=== PATIENT | male | born 2000 | race Caucasian/White ===

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

== ENCOUNTER 2018-01-09 19:19 | Emergency (ER) | END 2018-01-09 21:02 | disposition home or self-care (01) ==

== ENCOUNTER 2018-02-10 20:12 | Emergency (ER) | END 2018-02-10 23:21 | disposition home or self-care (01) ==

== ENCOUNTER 2018-03-10 20:24 | Emergency (ER) | END 2018-03-10 22:52 | disposition home or self-care (01) ==

== ENCOUNTER 2018-08-23 14:58 | Emergency (ER) | END 2018-08-23 17:07 | disposition home or self-care (01) ==

== ENCOUNTER 2018-12-26 09:19 | Emergency (ER) | payer OTHER ==
[~2018-12-26] VITALS: Wt 90.0 kg
[~2018-12-26 09:19] MED LIST: ACET-141 PO; ACET500C5 PO; ADVIL PRN; ALBU18HF INHALATION; ALBU8.5H8; BENZ-6 PO; CETI10CA PO; D-ME473S2 PO; DICY10CA40 PO; DICY20TA59 PO; FAMO-96 PO; HYDR-3498 PO; IBUP-1542 PO; OMEP10CA4 PO; ONDA4TAB14 PO; ONDA4TAB35 PO; PROM6.256
[2018-12-26 09:22] VITALS: BP 135/63; PULSE 98; RESP 18
[2018-12-26] MEDS ORDERED: BENZ-6 PO (09:51)
--- NOTE | 2018-12-26 10:39 | ERD ---
ER Documentation Chief Complaint Chief Complaint cough x 2 days HPI 17-year-old male patient with no significant past medical history presents the ED complaining of a cough that started 2 days ago. Patient reports that he has been taking DayQuil as well as promethazine DM without any relief. Denies any recent traveling. Denies any nausea, vomiting, diarrhea, neck stiffness, abdominal pain, chest pain, shortness of breath. ROS All systems reviewed and are negative except as per history of present illness. Medications Home Meds Active Scripts Benzonatate* (Tessalon Perle*) 100 Mg Capsule, 100 MG PO Q8H PRN for COUGH, #20 CAP Prov:RANDALL CASTRO PA-C 12/26/18 Albuterol Sulfate* (Ventolin HFA*) 18 Gm Hfa.aer.ad, 2 PUFF INHALATION Q4H, #1 INHALER Prov:RANDALL CASTRO PA-C 08/23/18 Benzonatate* (Tessalon Perle*) 100 Mg Capsule, 100 MG PO Q8H PRN for COUGH, #20 CAP Prov:RANDALL CASTRO PA-C 08/23/18 Dextromethorphan Hb-Promethazine Hcl* (Promethazine DM* Syrup) 473 Ml Syrup, 5 ML PO Q6 PRN for COUGH, #120 ML Prov:WIGN THAKUR PA-C 03/10/18 Famotidine* (Pepcid*) 20 Mg Tablet, 20 MG PO BID, #60 TAB Prov:MAURICIO MOLINA NP 02/10/18 Ondansetron (Ondansetron Odt) 4 Mg Tab.rapdis, 4 MG PO Q6H PRN for NAUSEA AND/OR VOMITING, #20 TAB Prov:MAURICIO MOLINA NP 02/10/18 Acetaminophen* (Tylophen*) 500 Mg Capsule, 1 CAP PO Q6H PRN for PAIN AND OR ELEVATED TEMP, #20 CAP Prov:MAURICIO MOLINA NP 02/10/18 Omeprazole* (Omeprazole*) 10 Mg Capsule.dr, 10 MG PO BID, #30 CAP Prov:QUINCY HANNA PA-C 01/09/18 Dicyclomine HCl (Dicyclomine HCl) 10 Mg Capsule, 1 TAB PO Q6 for 4 Days Prov:QUINCY HANNA PA-C 01/09/18 Ondansetron (Ondansetron Odt) 4 Mg Tab.rapdis, 4 MG PO Q6H PRN for NAUSEA AND/OR VOMITING, #10 TAB Prov:QUINCY HANNA PA-C 01/09/18 Acetaminophen* (Tylophen*) 500 Mg Capsule, 1 CAP PO Q6H PRN for PAIN AND OR ELEVATED TEMP, #20 CAP Prov:MAURICIO MOLINA NP 12/26/17 Cetirizine Hcl* (Zyrtec*) 10 Mg Capsule, 10 MG PO DAILY, #30 TAB.CHEW Prov:MAURICIO MOLINA NP 12/26/17 Ibuprofen* (Motrin*) 600 Mg Tab, 600 MG PO Q6H PRN for PAIN AND OR ELEVATED TEMP, #30 TAB Prov:MAURICIO MOLINA NP 12/26/17 Benzonatate* (Tessalon Perle*) 100 Mg Capsule, 100 MG PO Q8H PRN for COUGH, #20 CAP Prov:MAURICIO MOLINA NP 12/26/17 Ibuprofen* (Motrin*) 600 Mg Tab, 600 MG PO Q6H PRN for PAIN AND OR ELEVATED TEMP, #30 TAB Prov:MAURICIO MOLINA NP 07/18/16 Ondansetron (Ondansetron Odt) 4 Mg Tab.rapdis, 4 MG PO Q8 PRN for NAUSEA AND/OR VOMITING, #30 TAB Prov:MAURICIO MOLINA NP 07/18/16 Dicyclomine Hcl* (Bentyl*) 20 Mg Tablet, 20 MG PO QID, #20 TAB Prov:MAURICIO MOLINA NP 07/18/16 Hydrocodone Bit-Acetaminophen* ([place]*) 5-325 Mg Tab, 1 TAB PO Q6 PRN for PAIN, #15 TAB Prov:MORAIMA HESTER 01/02/16 Acetaminophen* (Acetaminophen*) 500 MG Extra Strength Tablet, 500 MG PO Q4H PRN for PAIN AND OR ELEVATED TEMP, #30 TAB Prov:MEME JOHNSON PA-C 1/24/16 Ondansetron Hcl* (Zofran* ODT) 4 mg -ODT Tab.disper, 4 MG PO Q6 PRN for NAUSEA AND/OR VOMITING, #10 TAB Prov:MEME JOHNSON PA-C 09/27/15 Reported Medications Albuterol Sulfate* (Proair HFA*) 8.5 Gm Hfa.aer.ad 11/30/10 Promethazine Hcl* (Phenergan* Liq) 6.25 Mg/5 Ml Syrup 09/21/10 [Advil Prn] No Conflict Check 09/12/09 Allergies Allergies: Coded Allergies: No Known Allergy (Verified , 12/26/18) PMhx/Soc Medical and Surgical Hx: pt denies Medical Hx, pt denies Surgical Hx History of Surgery: No Anesthesia Reaction: No Hx Neurological Disorder: No Hx Respiratory Disorders: No Hx Cardiac Disorders: No Hx Psychiatric Problems: No Hx Miscellaneous Medical Probl: No Hx Alcohol Use: Yes (social) Hx Substance Use: Yes (marijuana daily) Hx Tobacco Use: No FmHx Family History: No diabetes, No coronary disease Physical Exam Vitals Vital Signs Date Temp Pulse Resp B/P (MAP) Pulse Ox O2 O2 Flow FiO2 Time Delivery Rate 12/26/18 98.1 98 18 135/63 99 09:22 (87) Physical Exam Const: Uuw-efp-[id number], well-nourished. In no acute distress. Head: Atraumatic, normocephalic Eyes: Normal Conjunctiva without injection. No purulent discharge. PERRL. EOMI ENT: Normal external ear. Ear canal without erythema. Tympanic membrane pearly chou without effusion or bulging. Nasal canal clear with normal turbinates. Moist oropharynx without tonsillar exudates. Non-erythematous pharynx. Uvula midline. No drooling. No trismus. Neck: Full range of motion. No meningismus. No cervical lymphadenopathy. Resp: Clear to auscultation bilaterally. No wheezing, rhonchi, rales, or crackles. No accessory muscle use. No retractions. Cardio: Regular rate and rhythm. No murmurs, rubs or gallops. Abd: Soft, non tender, non distended. Normal bowel sounds. No palpable masses. No rebound tenderness. No guarding. Skin: No petechiae or rashes Back: No midline tenderness. No CVA tenderness. Ext: No cyanosis, or edema. Neur: Awake and alert. Psych: Normal Mood and Affect Procedures/MDM 17-year-old male patient with no significant past medical history presents ED complaining of cough that started 2 days ago. Patient is afebrile and nontoxic- appearing. Patient is speaking in full sentences without any respiratory dis tress. This patient presents to the ED with symptoms consistent with a viral acute upper respiratory infection. Patient's physical exam include lungs which were clear to auscultation and a normal pulse oximetry. There is a low suspicion for pneumonia, pneumothorax, mononucleosis, pulmonary embolism, epiglottitis, otitis media, otitis externa, viral/strep pharyngitis, sinusitis, myocarditis, pericarditis, endocarditis, peritonsillar abscess, mastoiditis, retropharyngeal abscess, meningitis, sepsis, acute abdomen or other emergent conditions. Fluids, rest, and symptomatic treatment are recommended for the management of patient's symptoms. Diagnosis: Cough Discharge medications: Ra Blackwell Patient was instructed to return to the ED for any new or worsening symptoms. They should otherwise follow up with the primary care provider within 2-3 days. The patient's questions were answered at the time of discharge. Patient understood and agreed with discharge management. Disclaimer: Inadvertent spelling and grammatical errors are likely due to EHR/dictation software use and do not reflect on the overall quality of patient care. Also, please note that the electronic time recorded on this note does not necessarily reflect the actual time of the patient encounter. Departure Diagnosis: Primary Impression: Cough Condition: Stable Patient Instructions: Uri, Viral, No Abx (Adult) Referrals: [facility] YOU HAVE RECEIVED A MEDICAL SCREENING EXAM AND THE RESULTS INDICATE THAT YOU DO NOT HAVE A CONDITION THAT REQUIRES URGENT TREATMENT IN THE EMERGENCY DEPARTMENT. FURTHER EVALUATION AND TREATMENT OF YOUR CONDITION CAN WAIT UNTIL YOU ARE SEEN I N YOUR DOCTORS OFFICE WITHIN THE NEXT 1-2 DAYS. IT IS YOUR RESPONSIBILITY TO MAKE AN APPOINTMENT FOR FOLOW-UP CARE. IF YOU HAVE A PRIMARY DOCTOR --you should call your primary doctor and schedule an appointment IF YOU DO NOT HAVE A PRIMARY DOCTOR YOU CAN CALL OUR PHYSICIAN REFERRAL HOTLINE AT IF YOU CAN NOT AFFORD TO SEE A PHYSICIAN YOU CAN CHOSE FROM THE FOLLOWING [facility] [address] [facility] [address] [facility] [address] [facility] [address] [facility] [address] [facility]. [facility]. [address] [facility]. [facility] YOU HAVE RECEIVED A MEDICAL SCREENING EXAM AND THE RESULTS INDICATE THAT YOU DO NOT HAVE A CONDITION THAT REQUIRES URGENT TREATMENT IN THE EMERGENCY DEPARTMENT. FURTHER EVALUATION AND TREATMENT OF YOUR CONDITION CAN WAIT UNTIL YOU ARE SEEN IN YOUR DOCTORS OFFICE WITHIN THE NEXT 1-2 DAYS. IT IS YOUR RESPONSIBILITY TO MAKE AN APPOINTMENT FOR FOLOW-UP CARE. IF YOU HAVE A PRIMARY DOCTOR --you should call your primary doctor and schedule and appointment IF YOU DO NOT HAVE A PRIMARY DOCTOR YOU CAN CALL OUR PHYSICIAN REFERRAL HOTLINE AT . IF YOU CAN NOT AFFORD TO SEE A PHYSICIAN YOU CAN CHOSE FROM THE FOLLOWING [facility] INSTITUTIONS: [facility] [address] [place] [address] [facility] [address] [place] [address] [facility] [place] [address] [place] [address] [facility] Additional Instructions: Call your primary care doctor TOMORROW for an appointment during the next 2-3 days.See the doctor sooner or return here if your condition worsens before your appointment time. RANDALL CASTRO PA-C Dec 26, 2018 10:39
[2018-12-26] MEDS ORDERED: INHA-3 MC (20:07)
[2018-12-26] MEDS ORDERED: GUAI120S25 PO (20:07)
[2018-12-26] MEDS ORDERED: ALBU8.5H8 INH (20:07)
[2018-12-26] MEDS ORDERED: CETI10CA PO (20:07)
[2018-12-26] MEDS ORDERED: PRED20TA PO (20:07)
== END 2018-12-26 10:19 | disposition home or self-care (01) ==
LOC: FTE 09:19
DX: R05 Cough (principal)
CPT/HCPCS: 99283

== ENCOUNTER 2018-12-26 18:30 | Emergency (ER) | payer OTHER ==
[~2018-12-26] VITALS: Ht 172.7 cm; Wt 92.5 kg
[2018-12-26 18:35] VITALS: BP 138/65; PULSE 86; RESP 16; Ht 172.7 cm; Wt 92.5 kg
--- NOTE | 2018-12-26 20:03 | ERD ---
ER Documentation Chief Complaint Chief Complaint Rash on R side started at 1630 pt took faisal kennedy @ 1100 HPI 18-year-old male, previously healthy, presents to the emergency department, complaining of acute onset of erythematous pruritic rash on the upper extremities after taking Almazsalon Rosalva for an upper respiratory infection. The patient denies history of previous episodes, no facial rash, no lip or tongue edema, no shortness of breath. No treatment attempted at this time. ROS All systems reviewed and are negative except as per history of present illness. Medications Home Meds Active Scripts [id number] Hb* (Guaifenesin* DM Syrup) 120 Ml Syrup, 10 ML PO TID PRN for COUGH, #120 ML Prov:ERICA NIEVES MD 12/26/18 Inhaler, Assist Devices (Compact Space Chamber) 1 Each Spacer, EACH MC, #1 Prov:ERICA NIEVES MD 12/26/18 Albuterol Sulfate* (Proair HFA*) 8.5 Gm Hfa.aer.ad, 2 PUFF INH Q4 for 7 Days, #1 INHALER Prov:ERICA NIEVES MD 12/26/18 Cetirizine Hcl* (Zyrtec*) 10 Mg Capsule, 10 MG PO DAILY, #10 TAB.CHEW Prov:ERICA NIEVES MD 12/26/18 Prednisone* (Prednisone*) 20 Mg Tab, 40 MG PO DAILY for 4 Days, TAB Prov:ERICA NIEVES MD 12/26/18 Benzonatate* (Tessalon Perle*) 100 Mg Capsule, 100 MG PO Q8H PRN for COUGH, #20 CAP Prov:RANDALL CASTRO PA-C 12/26/18 Albuterol Sulfate* (Ventolin HFA*) 18 Gm Hfa.aer.ad, 2 PUFF INHALATION Q4H, #1 INHALER Prov:RANDALL CASTRO PA-C 08/23/18 Benzonatate* (Tessalon Perle*) 100 Mg Capsule, 100 MG PO Q8H PRN for COUGH, #20 CAP Prov:RANDALL CASTRO PA-C 08/23/18 Dextromethorphan Hb-Promethazine Hcl* (Promethazine DM* Syrup) 473 Ml Syrup, 5 ML PO Q6 PRN for COUGH, #120 ML Prov:WING THAKUR PA-C 03/10/18 Famotidine* (Pepcid*) 20 Mg Tablet, 20 MG PO BID, #60 TAB Prov:MAURICIO MOLINA NP 02/10/18 Ondansetron (Ondansetron Odt) 4 Mg Tab.rapdis, 4 MG PO Q6H PRN for NAUSEA AND/OR VOMITING, #20 TAB Prov:MAURICIO MOLINA NP 02/10/18 Acetaminophen* (Tylophen*) 500 Mg Capsule, 1 CAP PO Q6H PRN for PAIN AND OR ELEVATED TEMP, #20 CAP Prov:MAURICIO MOLINA NP 02/10/18 Omeprazole* (Omeprazole*) 10 Mg Capsule.dr, 10 MG PO BID, #30 CAP Prov:QUINCY HANNA PA-C 01/09/18 Dicyclomine HCl (Dicyclomine HCl) 10 Mg Capsule, 1 TAB PO Q6 for 4 Days Prov:QUINCY HANNA PA-C 01/09/18 Ondansetron (Ondansetron Odt) 4 Mg Tab.rapdis, 4 MG PO Q6H PRN for NAUSEA AND/OR VOMITING, #10 TAB Prov:QUINCY HANNA PA-C 01/09/18 Acetaminophen* (Tylophen*) 500 Mg Capsule, 1 CAP PO Q6H PRN for PAIN AND OR ELEVATED TEMP, #20 CAP Prov:MAURICIO MOLINA NP 12/26/17 Cetirizine Hcl* (Zyrtec*) 10 Mg Capsule, 10 MG PO DAILY, #30 TAB.CHEW Prov:MAURICIO MOLINA NP 12/26/17 Ibuprofen* (Motrin*) 600 Mg Tab, 600 MG PO Q6H PRN for PAIN AND OR ELEVATED TEMP, #30 TAB Prov:MAURICIO MOLINA NP 12/26/17 Benzonatate* (Tessalon Perle*) 100 Mg Capsule, 100 MG PO Q8H PRN for COUGH, #20 CAP Prov:MAURICIO MOLINA NP 12/26/17 Ibuprofen* (Motrin*) 600 Mg Tab, 600 MG PO Q6H PRN for PAIN AND OR ELEVATED TEMP, #30 TAB Prov:MAURICIO MOLINA NP 07/18/16 Ondansetron (Ondansetron Odt) 4 Mg Tab.rapdis, 4 MG PO Q8 PRN for NAUSEA AND/OR VOMITING, #30 TAB Prov:MAURICIO MOLINA NP 07/18/16 Dicyclomine Hcl* (Bentyl*) 20 Mg Tablet, 20 MG PO QID, #20 TAB Prov:MAURICIO MOLINA NAILING MACHINE OPERATOR 07/18/16 Hydrocodone Bit-Acetaminophen* ([place]*) 5-325 Mg Tab, 1 TAB PO Q6 PRN for PAIN, #15 TAB Prov:MORAIMA HESTER 01/02/16 Acetaminophen* (Acetaminophen*) 500 MG Extra Strength Tablet, 500 MG PO Q4H PRN for PAIN AND OR ELEVATED TEMP, #30 TAB Prov:MEME JOHNSON PA-C 09/27/15 Ondansetron Hcl* (Zofran* ODT) 4 mg -ODT Tab.disper, 4 MG PO Q6 PRN for NAUSEA AND/OR VOMITING, #10 TAB Prov:MEME JOHNSON PA-C 09/27/15 Reported Medications Albuterol Sulfate* (Proair HFA*) 8.5 Gm Hfa.aer.ad 11/30/10 Promethazine Hcl* (Phenergan* Liq) 6.25 Mg/5 Ml Syrup 09/21/10 [Advil Prn] No Conflict Check 09/12/09 Allergies Allergies: Coded Allergies: benzonatate (Verified Allergy, Unknown, hives, 12/26/18) PMhx/Soc History of Surgery: No Anesthesia Reaction: No Hx Neurological Disorder: No Hx Respiratory Disorders: No Hx Cardiac Disorders: No Hx Psychiatric Problems: No Hx Miscellaneous Medical Probl: No Hx Alcohol Use: Yes (social) Hx Substance Use: Yes (marijuana daily) Hx Tobacco Use: No Smoking Status: Never smoker FmHx Family History: diabetes; No coronary disease Physical Exam Vitals Vital Signs Date Temp Pulse Resp B/P (MAP) Pulse Ox O2 O2 Flow FiO2 Time Delivery Rate 12/26/18 99.4 86 16 138/65 98 18:35 (89) Physical Exam Const: No acute distress Head: Atraumatic Eyes: Normal Conjunctiva ENT: Normal External Ears, Nose and Mouth. Neck: Full range of motion. No meningismus. Resp: Clear to auscultation bilaterally Cardio: Regular rate and rhythm, no murmurs Abd: Soft, non tender, non distended. Normal bowel sounds Skin: Urticarial rash in upper extremities, no petechiae or rashes Back: No midline or flank tenderness Ext: No cyanosis, or edema Neur: Awake and alert Psych: Normal Mood and Affect Results 24 hrs Current Medications Medications Dose Sig/Kinjal Start Time Status Last (Trade) Ordered Route PRN Stop Time Admin Dose Reason Admin 50 mg ONCE ONCE 12/26/18 DC 12/26/18 Diphenhydrami PO 20:30 20:12 ne HCl 12/26/18 20:31 (Benadryl) Prednisone 60 mg ONCE ONCE 12/26/18 DC 12/26/18 (Prednisone) PO 20:30 20:12 12/26/18 20:31 Procedures/MDM Differential diagnosis include but not limited to: Viral exanthema, acute allergic reaction, autoimmune dermatitis, medication side effect, low suspicion for angioedema, anaphylactic shock, Doll-Jeffrey syndrome. Physical examination and clinical presentation consistent most likely with acute allergic urticaria During the ED course the patient remained hemodynamically stable stable, no new complaints. After treatment received in the emergency department, the patient presented overall improvement of the symptoms. Treatment options and clinical impression discussed with the patient who agrees with management. The patient is stable to be treated outpatient and will be discharged home, some side effects of prescribed medications (headache, rash, nausea, vomiting, diarrhea, drowsiness, interactions with other medications) were reviewed. The patient was instructed to follow up with the primary care provider in the next 48h. If symptoms persist, worsen or new symptoms develop, then patient should return to the ED immediately. Instructions explained and given directly by me with acknowledgment and demonstrated understanding. Disclaimer: Inadvertent spelling and grammatical errors are likely due to EHR/dictation software use and do not reflect on the overall quality of patient care. Also, please note that the electronic time recorded on this note does not necessarily reflect the actual time of the patient encounter. This Departure Diagnosis: Primary Impression: Allergic urticaria Condition: Stable Patient Instructions: Riley Additional Instructions: Thank you very much for allowing us to participate in your care. Your health and safety is our top priority at [facility]. The evaluation in the emergency department has been done to rule out an acute emergency, therefore, chronic conditions like malignancy or other diseases have not been evaluated; therefore, you need to follow up with a primary care provider in the next 48h. If symptoms persist, worsen or new symptoms develop, then patient should return to the ED immediately. Call your primary care doctor TOMORROW for an appointment during the next 2-4 days and bring all the information provided. Have prescriptions filled and follow precisely the directions on the label. If the symptoms get worse and your provider is unavailable, return to the Emergency Department immediately. ERICA NIEVES MD Dec 26, 2018 20:03
[2018-12-26] MEDS ORDERED: CETI10CA PO (20:07)
[2018-12-26] MEDS ORDERED: PRED20TA PO (20:07)
[2018-12-26] MEDS ORDERED: ALBU8.5H8 INH (20:07)
[2018-12-26] MEDS ORDERED: INHA-3 MC (20:07)
[2018-12-26] MEDS ORDERED: GUAI120S25 PO (20:07)
[2018-12-26] MEDS ORDERED: DIPHENHYDRAMINE 50 MG CAP PO ONE (20:30)
[2018-12-26] MEDS ORDERED: predniSONE 20 MG TAB PO ONE (20:30)
== END 2018-12-26 20:23 | disposition home or self-care (01) ==
LOC: FTE 18:30
DX: L50.0 Allergic urticaria (principal)
CPT/HCPCS: J7512; Z7502; Z7610; 99283